=== PATIENT | male | born 1970 | race Caucasian/White ===

== ENCOUNTER → 2021-06-22 | Outpatient (CLI) | payer OTHER ==
[~2021-06-22] MED LIST: ATIVAN0.5 M1; CEFADROXIL500 MG PO; CIPRO500 MG PO; CLONAZEPAM2 MG; COZAAR100 MG; CYMBALTA60 MG; EFFEXOR XR150 MG; GLIMEPIRIDE2 MG; KOMBIGLYZE XR1 EAC2; LANTUS SOL100 UNIT/1; LITIO; METFORMIN HCL500 MG; MOTRIN800 MG PO; NEURONTIN800 MG; PRAVASTATIN SOD40 MG; RESTORIL30 MG PO; SEROQUEL50 MG; ZOCOR20 MG
== END | disposition home or self-care (01) ==
LOC: NUCLEAR 06-11 08:00
PROVIDERS: ATTEND Internal Medicine
DX: I25.10 Atherosclerotic heart disease of native coronary artery without angina pectoris (principal)
CPT/HCPCS: 78452; 93017; A9500

== ENCOUNTER 2022-05-01 12:20 | Outpatient (CLI) | payer OTHER | END 2022-05-01 12:24 | disposition home or self-care (01) | LOC: NUCLEAR 12:20 | PROVIDERS: ATTEND Internal Medicine | DX: N00.1 Acute nephritic syndrome with focal and segmental glomerular lesions (principal); Z91.013 Allergy to seafood | CPT/HCPCS: 78709; A9539; J1940 ==

== ENCOUNTER 2022-05-15 07:18 | Outpatient (CLI) | payer OTHER | END 2022-05-15 07:19 | disposition home or self-care (01) | LOC: NUCLEAR 07:18 | PROVIDERS: ATTEND Internal Medicine Gastroenterology | DX: K31.89 Other diseases of stomach and duodenum (principal); Z91.013 Allergy to seafood | CPT/HCPCS: 78264; A9541 ==

== ENCOUNTER → 2025-04-22 10:37 | Outpatient (CLI) | payer OTHER | END | disposition home or self-care (01) | LOC: NUCLEAR 04-11 11:30 | PROVIDERS: ATTEND Psychiatry & Neurology Clinical Neurophysiology | DX: Z13.820 Encounter for screening for osteoporosis (principal); M81.0 Age-related osteoporosis without current pathological fracture ==